=== PATIENT | male | born 1955 | race Caucasian/White ===

== ENCOUNTER 2021-04-14 11:49 | Inpatient (IN) | payer BC ==
[~2021-04-14] VITALS: Ht 185.4 cm; Wt 131.5 kg
[2021-04-14] MEDS ORDERED: ZESTRIL40 M1 PO (12:19)
[2021-04-14] MEDS ORDERED: BUPROPION XL150 M1 PO (12:19)
[2021-04-14] MEDS ORDERED: MELO7.5 PO (12:19)
[2021-04-14] MEDS ORDERED: FINA5 PO (12:19)
[2021-04-14 12:49] LABS: BASOPHILS ABSOLUTE AUTO 0.06 K/mm3 (0.00-0.23); BASOPHILS PERCENT AUTO 0 % (0-2); EOSINOPHILS ABSOLUTE AUTO 0.05 K/mm3 (0.00-0.68); EOSINOPHILS PERCENT AUTO 0 % (0-6); Hemoglobin 14.5 g/dL (13.5-17.5); IMMATURE GRAN ABSOLUTE AUTO 0.22 K/mm3 (0.00-0.10); IMMATURE GRAN PERCENT AUTO 1 % (0-1); LYMPHOCYTES ABSOLUTE AUTO 0.44 K/mm3 (0.84-5.20); LYMPHOCYTES PERCENT AUTO 2 % (21-46); MONOCYTES ABSOLUTE AUTO 1.35 K/mm3 (0.16-1.47); MONOCYTES PERCENT AUTO 7 % (4-13); Mean Corpuscular HGB 29.7 pg (26.0-34.0); Mean Corpuscular HGB Conc 34.5 g/dL (31.5-36.5); Mean Corpuscular Volume 86 fL (80-100); Mean Platelet Volume 9.6 fL (9.1-12.4); NEUTROPHILS ABSOLUTE AUTO 16.34 K/mm3 (1.96-9.15); NEUTROPHILS PERCENT AUTO 89 % (41-73); Platelet Count 205 K/mm3 (150-400); RDW Coefficient Variation 12.6 % (11.7-14.2); RDW Standard Deviation 39.4 fL (35.1-46.3); Red Blood Cell Count 4.89 M/mm3 (4.30-5.90); White Blood Cell Count 18.46 K/mm3 (4.00-11.30)
[2021-04-14 13:20] LABS: Alanine Aminotransfer (ALT/SGP 20 U/L (12-78); Albumin, Blood 3.4 g/dL (3.4-5.0); Albumin/Globulin Ratio 1.1 (0.8-1.8); Alk Phos 69 U/L (50-136); Anion Gap 7 mmol/L (6-16); Aspartate Aminotrans (AST/SGOT 12 U/L (12-37); Bilirubin, Total 2.1 mg/dL (0.1-1.0); Blood Urea Nitrogen 19 mg/dL (8-24); Bun/Creatinine Ratio 20.1 (12.0-20.0); CO2, Blood 24 mmol/L (21-32); Calcium, Blood 9.5 mg/dL (8.5-10.1); Chloride, Blood 103 mmol/L (98-108); Creatinine, Blood 0.95 mg/dL (0.60-1.20); Globulin, Blood 3.2 g/dL (2.2-4.0); Glomerular Filtration Rate >60 (60-); Glucose, Blood 103 mg/dL (70-99); Potassium, Blood 3.7 mmol/L (3.5-5.5); Sodium, Blood 134 mmol/L (136-145); Total Protein, Blood 6.6 g/dL (6.4-8.2)
[2021-04-14] MEDS ORDERED: FLUT.05NI (15:02)
--- NOTE | 2021-04-14 19:21 | NUR ---
PATIENT CAME BACK FROM ER AT 1815 TODAY 04/14/21. POST OP HERNIA INFECTION PATIENT CAME BACK ALERT AND ORIENTED X4. VS ARE WNL AND IS ON RA. PATIENT DENIES ANY STOMACH PAIN BUT MORE SO HIS ARTHRITIS PAIN THAT IS "ALL OVER". HIS ABD HAS REDNESS ACROSS THE STOMACH AND IS WARM TO TOUCH. IT IS ALSO SOMEWHAT FIRM IN THAT AREA. PATIENT IS STILL ABLE TO VOIDING AND IS TOLERATING PO INTAKE. HE IS ABLE TO AMBULATE BY HIMSELF INDEPENDENTLY. HE CURRENTLY HAS IV FLUIDS RUNNING WELL ABX. HE IS CURRENTLY LAYING IN BED WATCHING TV. CALL LIGHT WITHIN REACH.
--- NOTE | 2021-04-15 04:04 | NUR ---
PT A/OX4. TMAX AT 101.4, TYLENOL GIVEN W/ GOOD EFFECT. PAIN MANAGED WELL W/ NORCO. IV FLUIDS INFUSING. NPO AT MIDNIGHT FOR POSSIBLE PROCEDURE IN AM. DENIES N/V. SLEEPING B/W CARE. URSING CALL LIGHT TO MAKE NEEDS KNOWN.
[2021-04-15 04:29] LABS: BASOPHILS ABSOLUTE AUTO 0.07 K/mm3 (0.00-0.23); BASOPHILS PERCENT AUTO 0 % (0-2); EOSINOPHILS ABSOLUTE AUTO 0.29 K/mm3 (0.00-0.68); EOSINOPHILS PERCENT AUTO 2 % (0-6); Hematocrit 38.3 % (37.0-53.0); IMMATURE GRAN ABSOLUTE AUTO 0.22 K/mm3 (0.00-0.10); IMMATURE GRAN PERCENT AUTO 1 % (0-1); LYMPHOCYTES ABSOLUTE AUTO 1.04 K/mm3 (0.84-5.20); LYMPHOCYTES PERCENT AUTO 6 % (21-46); MONOCYTES ABSOLUTE AUTO 1.67 K/mm3 (0.16-1.47); MONOCYTES PERCENT AUTO 9 % (4-13); Mean Corpuscular HGB 29.8 pg (26.0-34.0); Mean Corpuscular HGB Conc 33.9 g/dL (31.5-36.5); Mean Corpuscular Volume 88 fL (80-100); Mean Platelet Volume 9.7 fL (9.1-12.4); NEUTROPHILS ABSOLUTE AUTO 14.95 K/mm3 (1.96-9.15); NEUTROPHILS PERCENT AUTO 82 % (41-73); Platelet Count 191 K/mm3 (150-400); RDW Coefficient Variation 12.8 % (11.7-14.2); RDW Standard Deviation 41.3 fL (35.1-46.3); Red Blood Cell Count 4.36 M/mm3 (4.30-5.90); White Blood Cell Count 18.24 K/mm3 (4.00-11.30)
[2021-04-15 04:51] LABS: Anion Gap 5 mmol/L (6-16); Blood Urea Nitrogen 28 mg/dL (8-24); Bun/Creatinine Ratio 23.1 (12.0-20.0); CO2, Blood 27 mmol/L (21-32); Calcium, Blood 9.2 mg/dL (8.5-10.1); Chloride, Blood 105 mmol/L (98-108); Creatinine, Blood 1.21 mg/dL (0.60-1.20); Glomerular Filtration Rate >60 (60-); Glucose, Blood 108 mg/dL (70-99); Potassium, Blood 3.8 mmol/L (3.5-5.5); Sodium, Blood 137 mmol/L (136-145)
--- NOTE | 2021-04-15 17:17 | NUR ---
SHIFT SUMMARY PT A&OX4, VSS/TEMP 99.2, PAIN MANAGED WITH 0.5 DILAUDID WHEN NPO THEN, 5 MG NORCO PO, MAKI PO REG DIET, VOIDING WELL, AMBULATING INDEPENDENTLY TO BRP/HALLWAY/IN ROOM. IVF @ 100 MLS/HR, ABX SCHEDULED. PLAN IS ABX TREATMENT. WILL REPORT TO ONCOMING NOC RN.
--- NOTE | 2021-04-16 05:53 | NUR ---
PT A/OX4. TMAX AT 101.4F, TYLENOL GIVEN AND EFFECTIVE. OTHER VSS ON RA. TOLERATED CPAP ALL NIGHT. DENIES SOB AND CHEST PAIN. NO N/V. IV ZOSYN ADMINISTERED. SLEEPING B/W CARE. USING URINAL. INDEPENDENT IN ROOM. USING URINAL TO MAKE NEEDS KNOWN.
[2021-04-16 06:55] LABS: BASOPHILS ABSOLUTE AUTO 0.04 K/mm3 (0.00-0.23); BASOPHILS PERCENT AUTO 0 % (0-2); EOSINOPHILS ABSOLUTE AUTO 0.63 K/mm3 (0.00-0.68); EOSINOPHILS PERCENT AUTO 5 % (0-6); Hematocrit 35.9 % (37.0-53.0); Hemoglobin 12.1 g/dL (13.5-17.5); IMMATURE GRAN ABSOLUTE AUTO 0.09 K/mm3 (0.00-0.10); IMMATURE GRAN PERCENT AUTO 1 % (0-1); LYMPHOCYTES ABSOLUTE AUTO 0.91 K/mm3 (0.84-5.20); LYMPHOCYTES PERCENT AUTO 7 % (21-46); MONOCYTES ABSOLUTE AUTO 1.23 K/mm3 (0.16-1.47); MONOCYTES PERCENT AUTO 9 % (4-13); Mean Corpuscular HGB 29.7 pg (26.0-34.0); Mean Corpuscular HGB Conc 33.7 g/dL (31.5-36.5); Mean Corpuscular Volume 88 fL (80-100); Mean Platelet Volume 9.8 fL (9.1-12.4); NEUTROPHILS PERCENT AUTO 78 % (41-73); Platelet Count 185 K/mm3 (150-400); Red Blood Cell Count 4.08 M/mm3 (4.30-5.90)
--- NOTE | 2021-04-16 17:16 | NUR ---
SHIFT SUMMARY PT A&OX4, TEMP 100.4, TREATED WITH TYLENOL. VSS/RA/HOME CPAP FOR NAPPING, SHOWERED TODAY, INDEPENDENT IN ROOM/HALLWAY. IVF & ABX INFUSED ORDERED; PO ABX STARTED AT 1700. VOIDING WELL. MAKI PO, DENIES N&V. PAIN MANAGED WITH 5 MG NORCO. WILL REPORT TO ONCOMING AYAD MCCOLLUM.
[2021-04-17 04:33] LABS: BASOPHILS ABSOLUTE AUTO 0.05 K/mm3 (0.00-0.23); BASOPHILS PERCENT AUTO 1 % (0-2); EOSINOPHILS ABSOLUTE AUTO 0.54 K/mm3 (0.00-0.68); EOSINOPHILS PERCENT AUTO 5 % (0-6); Hematocrit 35.5 % (37.0-53.0); Hemoglobin 11.7 g/dL (13.5-17.5); IMMATURE GRAN ABSOLUTE AUTO 0.06 K/mm3 (0.00-0.10); IMMATURE GRAN PERCENT AUTO 1 % (0-1); LYMPHOCYTES ABSOLUTE AUTO 1.03 K/mm3 (0.84-5.20); LYMPHOCYTES PERCENT AUTO 10 % (21-46); MONOCYTES ABSOLUTE AUTO 1.03 K/mm3 (0.16-1.47); MONOCYTES PERCENT AUTO 10 % (4-13); Mean Corpuscular Volume 88 fL (80-100); Mean Platelet Volume 9.7 fL (9.1-12.4); NEUTROPHILS ABSOLUTE AUTO 7.42 K/mm3 (1.96-9.15); NEUTROPHILS PERCENT AUTO 73 % (41-73); Platelet Count 202 K/mm3 (150-400); RDW Coefficient Variation 12.7 % (11.7-14.2); RDW Standard Deviation 41.1 fL (35.1-46.3); Red Blood Cell Count 4.04 M/mm3 (4.30-5.90); White Blood Cell Count 10.13 K/mm3 (4.00-11.30)
--- NOTE | 2021-04-17 05:38 | NUR ---
PT A/OX4. VSS ON RA. DENIES PAIN. ABDOMINAL ABCESS DRAINED LARGE AMT OF PUSS, CLEANED AND DRESSING APPLIED. PT SLEEPING B/W CARE. TOLERATED CPAP ALL NIGHT. USING URINAL. USING CALL LIGTH TO MAKE NEEDS KNOWN.
[2021-04-17] MEDS ORDERED: AMOCLA500 PO (14:26)
--- NOTE | 2021-04-17 15:48 | NUR ---
DISCHARGE NOTES PATIENT ALERT AND ORIENTED THROUGHOUT SHIFT. TOLERATING REGULAR DIET. AND FLUIDS. INDEPENDENT IN ROOM AND TO BATHROOM. ABD HERNIA INCISION MODERATE BROWN SS DRAINAGE. 4X4 GAUZE AND ABD PADS COVERED WITH ABD BINDER. PAIN MINIMAL. DISCHARGE ORDERS. OBTAINED. DISCHARGE EDUCATION GIVEN ON WOUND CARE, ACTIVITY, NEW RX'S, AND FOLLOW UP APPTS. PATIENT LEFT UNIT AT 1520 VIA WHEELCHAIR FOR HOME.
== END 2021-04-17 15:45 | disposition home or self-care (01) | DRG 863 ==
LOC: ER 11:49 → SURS 16:35
PROVIDERS: Emergency Medicine; ADMIT Surgery
DX: T81.41XA Infection following a procedure, superficial incisional surgical site, initial encounter (principal); L02.211 Cutaneous abscess of abdominal wall; L76.34 Postprocedural seroma of skin and subcutaneous tissue following other procedure; Y83.8 Other surgical procedures as the cause of abnormal reaction of the patient, or of later complication, without mention of misadventure at the time of the procedure; F32.9 Major depressive disorder, single episode, unspecified; E66.9 Obesity, unspecified; I10 Essential (primary) hypertension; M19.90 Unspecified osteoarthritis, unspecified site; Z79.899 Other long term (current) drug therapy; Z79.51 Long term (current) use of inhaled steroids; Z79.1 Long term (current) use of non-steroidal anti-inflammatories (NSAID); Z68.38 Body mass index [BMI] 38.0-38.9, adult
CPT/HCPCS: 36415; 74177; 80048; 80053; 83605; 85025; 87040; 96365-59; 96375-59; 99285-25; A9270; J1170; J2405; J2543; J3010; J7120; Q9967